=== PATIENT | female | born 1950 | race Caucasian/White ===

== ENCOUNTER → 2017-10-25 | Outpatient (CLI) | payer MEDICARE | LOC: M.RAD 14:04 | DX: M77.32 Calcaneal spur, left foot (principal); M19.072 Primary osteoarthritis, left ankle and foot ==

== ENCOUNTER → 2018-09-18 | Outpatient (CLI) | payer MEDICARE ==
[2018-09-18 12:34] LABS: ABSOLUTE EOSINOPHILS 0.3 thou/uL (0.0-0.7); ABSOLUTE LYMPHOCYTES 1.9 thou/uL (0.8-5.3); ABSOLUTE MONOCYTES 0.6 thou/uL (0.0-1.2); ABSOLUTE NEUTROPHILS 4.1 thou/uL (1.6-8.1); BASOPHILS 0.6 %; EOSINOPHILS 4.3 %; HEMOGLOBIN 9.9 gm/dL (12.0-15.0); LYMPHOCYTES 27.5 %; MCH 21.6 pg (26.0-34.0); MCHC 30.9 g/dL (28.0-37.0); MCV 69.9 fL (80.0-100.0); MONOCYTES 8.4 %; NUCLEATED RBCS 0 /100WBC; PLATELET COUNT* 358 thou/uL (150-400); POLYS 59.2 %; RBC 4.58 mil/uL (4.20-5.00); RDW-CV 18.1 % (10.5-14.5)
[2018-09-18 12:55] LABS: ALKALINE PHOSPHATASE 141 U/L (46-116); ANION GAP 9 mmol/L (7-16); BUN 11 mg/dL (7-18); CALCIUM 8.7 mg/dL (8.5-10.1); CHLORIDE 107 mmol/L (98-107); CHOLESTEROL 226 mg/dL (<200); CO2 24 mmol/L (21-32); CREATININE 0.9 mg/dL (0.6-1.3); GLUCOSE 103 mg/dL (70-99); HDL CHOLESTEROL 55 mg/dL (>40); LDL CHOLESTEROL 144 mg/dL (<100); POTASSIUM 4.1 mmol/L (3.5-5.1); SGOT 9 U/L (15-37); SGPT 13 U/L (30-65); SODIUM 140 mmol/L (136-145); TC:HDL 4.1 Ratio (Not establshd); TOTAL BILIRUBIN 0.1 mg/dL (<0.1-1.0); TOTAL PROTEIN 6.8 g/dL (6.4-8.2); TRIGLYCERIDE 137 mg/dL (<150); VLDL 27 mg/dL (<40)
[2018-09-18 12:56] LABS: SERUM ASSESSMENT Clear
[2018-09-18 13:10] LABS: HYPOCHROMASIA 2+
[2018-09-18 13:11] LABS: ANISOCYTOSIS 1+; MICROCYTES 3+; PLATELET ESTIMATE ADEQUATE
[2018-09-19 16:06] LABS: GLYCOHEMOGLOBIN (HGB A1C) 6.3 % (4.8-5.6)
== END ==
LOC: M.LAB 11:44 → M.RAD 11:44
PROVIDERS: Nurse Practitioner Family
DX: Z12.31 Encounter for screening mammogram for malignant neoplasm of breast (principal); E78.5 Hyperlipidemia, unspecified; R79.89 Other specified abnormal findings of blood chemistry

== ENCOUNTER 2020-08-27 00:37 | Inpatient (IN) | payer MEDICARE ==
[~2020-08-27] VITALS: Ht 162.6 cm; Wt 90.5 kg
--- NOTE | ~2020-08-27 | EEG ---
[address] [address] EEG STUDY REPORT Name: VANESSA CORDERO Sharon Room: [address] IN M.R.#: [id number] Admission: 08/27/20 Attend Phys: Cali Rodriguez MD Discharge: Date of : 52 Report #: [id number] THIS REPORT FOR: cc: Steve Vargas Russell J. DO Khosla, Parveen K. MD ~ DOC #: [id number] Junior Hart MD DATE OF SERVICE: 08/31/2020 This patient is being evaluated for altered mental status. The EEG was done by placing the electrode by standard 10-20 system of electrode placement. Both referential and sequential montages were used for recording. The background activity in this patient's EEG is about 8 Hz and 30 microvolt. The patient went to sleep that is associated with bilateral slowing and vertex sharp waves. Photic stimulation is unremarkable. Throughout the record, no active epileptiform activity was noticed. IMPRESSION: This patient's EEG is disorganized and poorly formed. That is a nonspecific abnormality which can occur with encephalopathy, effect of psychotropic medication, dementia, etc. Clinical correlation is recommended. Junior Hart MD PK/MAX By: 1700 [id number] Hart MD /beto
--- NOTE | ~2020-08-27 | OP ---
[address] [address] OPERATIVE REPORT Name: CORDEROVANESSA Room: [address] IN .R.#: [id number] Admission: 08/27/20 Attend Phys: Cali Rodriguez MD Discharge: Date of : 52 Report #: [id number] THIS REPORT FOR: cc: Steve Vargas Russell J. DO Dugan, David W. DO ~ DOC #: [id number] Bob Potter DO DATE OF SURGERY: 08/29/2020 PREOPERATIVE DIAGNOSIS: Left bimalleolar ankle fracture. POSTOPERATIVE DIAGNOSIS: Left bimalleolar ankle fracture. PROCEDURE PERFORMED: Open reduction internal fixation of left bimalleolar ankle fracture. OPERATIVE SURGEON: Bob Potter DO. TANKROOM TENDER: ___ and Romario Snow DO. IV ANTIBIOTICS: 2 grams IV Ancef. ANESTHESIA: General anesthesia as well as regional block was performed by Anesthesia. ESTIMATED BLOOD LOSS: 50 mL. DRAINS: None. SPECIMENS: None. FINDINGS: Same as postoperative diagnosis. COMPLICATIONS: None. CONDITION: The patient is stable. DISPOSITION: PACU to Med/Surg floor. INDICATIONS FOR PROCEDURE: The patient is a pleasant 69-year-old female who originally presented to [place] ED late Saturday evening for evaluation of altered mental status as well as several falls over the last several months. She was evaluated by Neurology for a possible stroke/TIA but workup has been negative thus far. Throughout her admission, the patient admitted to significant left ankle pain with associated soft tissue swelling and ecchymosis that [facility] [address] [place] [address] OPERATIVE REPORT Name: VANESSA CORDERO Room: [address] IN [facility].#: [id number] Admission: 08/27/20 Attend Phys: Cali Rodriguez MD Discharge: Date of : 52 Report #: [id number] occurred during her most recent fall. She states she was unable to bear weight after her fall. Left ankle radiographs yesterday demonstrated a mildly displaced bimalleolar ankle fracture. We discussed treatment options with the patient and recommended proceeding with left bimalleolar ankle ORIF. The risks, benefits, complications and alternatives of procedure were thoroughly discussed with the patient. The patient accepted the risks and wished to proceed. Written consent was obtained for the procedure. DESCRIPTION OF PROCEDURE: The patient was seen in the preoperative suite. The operative extremity was marked by the operative surgeon. Everyone in the preoperative suite was in agreement on correct side, site, patient and procedure. Popliteal and saphenous blocks were then performed by Anesthesia. After the blocks were completed, the patient was then transported to the operative suite and placed supine on a well-padded operating table. She was given the benefit of general anesthesia as well as 2 grams IV Ancef. A well-padded tourniquet was placed on the left upper thigh that was inflated for a total of 51 minutes at 300 mmHg. A bump was placed under the left hip as well as the bone foam placed under the left lower extremity. The left lower extremity was then prepped and draped in the typical sterile fashion. A time-out was performed that confirmed correct side, site, patient and procedure. Everyone in the operative suite was in agreement. The procedure began by marking out the anatomical landmarks of the distal fibula and marking out the 15 cm longitudinal incision over the posterior border of the distal fibula. The left lower extremity was then exsanguinated with an Esmarch and tourniquet was inflated. The lateral incision was then made with scalpel through skin and subcutaneous tissue. Care was taken to look for the superficial peroneal nerve, that was not visualized throughout the procedure. Metzenbaum scissors were then utilized to bluntly dissect subcutaneous tissue down to the level of periosteum. A scalpel was then utilized to incise the periosteum along bone and then create anterior and posterior flaps. After the creation of the periosteal flaps, the fracture site was visualized and appeared to be comminuted with three fracture fragments including an anterior fragment attached to the AITFL as well as the lateral malleolar fragment. The fracture site was thoroughly irrigated with normal saline. A dental pick, curette and rongeur were utilized to sharply debride the fracture site. A siztn-xe-qusac reduction clamp was then utilized to attempt to reduce the fracture. The anterior piece attached to the AITFL would not fully reduce, and the AITFL was partially released to aid in reduction. Once again, the lfntv-tw-ojpbn reduction clamp was utilized and excellent reduction of her fracture was achieved. Reduction of her fracture was confirmed on both AP and lateral fluoroscopic imaging. The appropriate length Lashonda distal fibular locking plate was then pinned into position with K-wires. The plate was in appropriate position as well as confirmed, maintained reduction of her fracture on both AP and lateral fluoroscopic images. We first turned our attention to drilling of a [address] [address] OPERATIVE REPORT Name: VANESSA CORDERO Room: [address] IN ..#: [id number] Admission: 08/27/20 Attend Phys: Cali Rodriguez MD Discharge: Date of : 52 Report #: [id number] bicortical screw in the distal fibular shaft. The screw was drilled, measured and inserted by hand in the typical fashion. We then turned our attention to the distal most screw hole where a cortical screw was drilled, measured and placed, to suck the plate down to bone. We then turned our attention to filling the locking screw holes distally. The distal locking screws were then drilled, measured, and the appropriate length screws were then inserted by hand. We then turned our attention to drilling the remainder of the proximal shaft screws. The screws were drilled, measured and the appropriate length screws were inserted by hand, 2 bicortical screws and 2 locking screws. We then turned our attention to the most distal hole in the plate, where the cortical screw was removed and the appropriate length locking screw was then inserted by hand. The two K-wires were then removed. AP and lateral fluoroscopic images demonstrated excellent reduction of her fracture as well as appropriate position of the plate. We then turned our attention to the medial malleolus fracture. A 4 cm curved incision centered over the medial malleolus was drawn out with a skin marker. Incision was made with scalpel through skin and subcutaneous tissue. Metzenbaum scissors were then utilized to bluntly dissect down to the level of the medial malleolus, protecting neurovascular structures at all times. A scalpel was utilized to elevate anterior and posterior periosteal flaps. A dental pick and rongeur were utilized to debride the fracture site that was then thoroughly irrigated with normal saline. We then turned our attention to placement of the 2 parallel K wires on power. The two K-wires were confirmed to be in appropriate position and alignment with maintained reduction of her fracture on both AP and lateral imaging. The cortex was overdrilled with the starting reamer. Two 46 mm cannulated screws were then advanced by hand. We completed tightening the screws under fluoroscopy, which demonstrated compression of her fracture as well as maintained reduction. The K-wires were then removed. An external rotation stress test was then performed, which demonstrated no evidence of syndesmotic injury. Final fluoroscopic images, both AP and lateral were then saved. The incisions were then thoroughly irrigated with normal saline. The lateral incision was closed with 0 Vicryl for deep layer followed by 2-0 Vicryl in an interrupted fashion in the subcutaneous layer, followed by a running 3-0 nylon. The medial incision was closed with 2-0 Vicryl in an interrupted fashion followed by 3-0 nylon in an interrupted fashion. The tourniquet was then deflated once again for a total of 51 minutes at 300 mmHg. The skin was then cleaned with a wet-to-dry dressing. Incisions were then dressed with Xeroform, 4 x 4's, ABDs, soft roll, a well-padded posterior slab Orthoglass splint and Harsha wraps. The patient was awoken from general anesthesia and transported to PACU in stable condition. All counts were correct x 2. I attest that Bob Potter DO was present through all critical aspects of this procedure. POSTOPERATIVE PLAN: The patient will be [place] [address] OPERATIVE REPORT Name: VANESSA CORDERO Room: [address] IN ..#: [id number] Admission: 08/27/20 Attend Phys: Cali Rodriguez MD Discharge: Date of : 52 Report #: [id number] extremity. She will maintain her splint clean, dry and intact. She will take aspirin 325 mg daily for DVT prophylaxis. She will work with PT and OT for safe transfers and gait training. She will have analgesics as needed. Medical management per primary. We encouraged her to call with any questions or concerns. DO RADHA West/RAJAT By: 1539 1917Davirommel Potter DO /nt
[2020-08-27 00:47] VITALS: BP 108/49
[2020-08-27 01:41] LABS: ABSOLUTE EOSINOPHILS 0.2 thou/uL (0.0-0.7); ABSOLUTE LYMPHOCYTES 1.6 thou/uL (0.8-5.3); ABSOLUTE MONOCYTES 0.8 thou/uL (0.0-1.2); ABSOLUTE NEUTROPHILS 6.3 thou/uL (1.6-8.1); BASOPHILS 0.2 %; EOSINOPHILS 2.2 %; HEMOGLOBIN 12.1 gm/dL (12.0-15.0); MCH 26.8 pg (26.0-34.0); MCHC 31.9 g/dL (28.0-37.0); MCV 83.8 fL (80.0-100.0); MONOCYTES 8.5 %; MPV 7.6 fl. (7.2-11.1); NUCLEATED RBCS 0 /100WBC; PLATELET COUNT* 254 thou/uL (150-400); POLYS 71.1 %; RBC 4.54 mil/uL (4.20-5.00); RDW-CV 17.7 % (10.5-14.5); WBC 8.9 thou/uL (4.0-11.0)
[2020-08-27 01:46] LABS: CALCIUM 8.6 mg/dL (8.5-10.1); POTASSIUM 3.3 mmol/L (3.5-5.1)
[2020-08-27 01:50] LABS: MAGNESIUM 2.5 mg/dL (1.8-2.4); TOTAL BILIRUBIN 0.2 mg/dL (<0.1-1.0); TOTAL PROTEIN 6.4 g/dL (6.4-8.2)
[2020-08-27 01:52] LABS: URINE BILIRUBIN NEGATIVE (Negative); URINE BLOOD NEGATIVE (Negative); URINE CLARITY CLEAR; URINE COLOR YELLOW; URINE GLUCOSE-RANDOM NEGATIVE (Negative); URINE KETONES NEGATIVE (Negative); URINE LEUKOCYTES-REFLEX NEGATIVE (Negative); URINE NITRITE-REFLEX NEGATIVE (Negative); URINE PROTEIN 1+ (Negative); URINE SPECIFIC GRAVITY 1.025 (1.005-1.030); URINE UROBILINOGEN 0.2 E.U./dl (0.2-1.0)
[2020-08-27 02:07] LABS: BE -16.2 mmol/L (-2 to +3); PCO2 31.4 mmHg (35.0-45.0); PO2 89.4 mmHg (75.0-100.0)
[2020-08-27 02:09] LABS: pH 7.168 (7.340-7.450)
[2020-08-27] MEDS ORDERED: GABAPENTIN (02:44)
[2020-08-27] MEDS ORDERED: ULTRAM 50MG TAB50 MG PO (02:45)
[2020-08-27 05:35] VITALS: BP 159/74
[2020-08-27 06:00] VITALS: BP 154/81
[2020-08-27] MEDS ORDERED: LAMICTAL (07:26)
[2020-08-27 11:41] VITALS: BP 152/57
[2020-08-27 16:10] VITALS: BP 165/48
[2020-08-27 20:00] VITALS: BP 155/69
[2020-08-28 00:41] VITALS: BP 157/70
[2020-08-28 04:33] LABS: ALBUMIN 2.5 g/dL (3.4-5.0); CALCIUM 8.4 mg/dL (8.5-10.1); CREATININE 1.1 mg/dL (0.6-1.3); TOTAL BILIRUBIN 0.3 mg/dL (<0.1-1.0); TOTAL PROTEIN 5.7 g/dL (6.4-8.2)
[2020-08-28 04:40] LABS: CHOLESTEROL 110 mg/dL (<200); HDL CHOLESTEROL 60 mg/dL (>40); LDL CHOLESTEROL 37 mg/dL (<100); POTASSIUM 2.9 mmol/L (3.5-5.1); TC:HDL 1.8 Ratio (Not establshd); TRIGLYCERIDE 68 mg/dL (<150); VLDL 14 mg/dL (<40)
[2020-08-28 04:41] LABS: SERUM ASSESSMENT CLEAR
[2020-08-28 06:37] VITALS: BP 156/66
[2020-08-28 08:00] VITALS: BP 171/85
[2020-08-28 12:00] VITALS: BP 141/68
[2020-08-28 12:16] LABS: CALCIUM 8.4 mg/dL (8.5-10.1); CREATININE 1.1 mg/dL (0.6-1.3); PHOSPHORUS* 3.5 mg/dL (2.5-4.9)
[2020-08-28 13:39] LABS: BE -7.9 mmol/L (-2 to +3); PO2 77.9 mmHg (75.0-100.0); pH 7.331 (7.340-7.450)
[2020-08-28 16:00] VITALS: BP 146/51
[2020-08-28 20:00] VITALS: BP 149/66
[2020-08-29] VITALS (7 sets, daily range): BP systolic 149–172; BP diastolic 61–89
[2020-08-29 02:05] LABS: GLYCOHEMOGLOBIN (HGB A1C) 5.6 % (4.8-5.6)
[2020-08-29 06:56] LABS: HEMATOCRIT 32.9 % (37.0-47.0); HEMOGLOBIN 10.9 gm/dL (12.0-15.0); MCH 27.2 pg (26.0-34.0); MCHC 33.1 g/dL (28.0-37.0); MCV 82.2 fL (80.0-100.0); MPV 7.1 fl. (7.2-11.1); RBC 4.01 mil/uL (4.20-5.00); RDW-CV 17.6 % (10.5-14.5); WBC 7.5 thou/uL (4.0-11.0)
[2020-08-29 07:00] LABS: CALCIUM 8.6 mg/dL (8.5-10.1); CREATININE 0.9 mg/dL (0.6-1.3); POTASSIUM 3.7 mmol/L (3.5-5.1)
--- NOTE | 2020-08-29 13:41 | EKG ---
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[place] : 1950 Requested By: Drea Gastelum Order Number: [id number] MD: Bob Short Measurements Intervals Noble Rate: 76 P: 55 DC: 138 QRS: 3 QRSD: 100 T: 83 QT: 388 QTc: 437 Interpretive Statements Sinus rhythm Abnormal R-wave progression, early transition ST elevation, consider early repolarization No previous ECG available for comparison Electronically Signed On 08-29-2020 13:41:00 CDT by Bob Short [email or web address] <ELECTRONICALLY SIGNED> By: Bob Short MD, [facility] 08/29/20 1341 0042 0042 Bob Short MD, [facility] /EPI
[2020-08-30 05:23] VITALS: BP 170/80
[2020-08-30 08:00] VITALS: BP 146/65
[2020-08-30 09:56] LABS: HEMATOCRIT 32.3 % (37.0-47.0); HEMOGLOBIN 10.4 gm/dL (12.0-15.0); MCH 26.5 pg (26.0-34.0); MCHC 32.3 g/dL (28.0-37.0); MPV 7.5 fl. (7.2-11.1); RBC 3.94 mil/uL (4.20-5.00); RDW-CV 16.9 % (10.5-14.5); WBC 8.7 thou/uL (4.0-11.0)
[2020-08-30 10:07] LABS: CALCIUM 8.3 mg/dL (8.5-10.1); CREATININE 0.9 mg/dL (0.6-1.3); POTASSIUM 3.9 mmol/L (3.5-5.1)
[2020-08-30 11:32] VITALS: BP 146/65
[2020-08-30 20:33] VITALS: BP 142/69
[2020-08-31] VITALS: BP 142/66
[2020-08-31 04:00] VITALS: BP 157/71
[2020-08-31 04:13] LABS: ABSOLUTE EOSINOPHILS 0.4 thou/uL (0.0-0.7); ABSOLUTE LYMPHOCYTES 1.8 thou/uL (0.8-5.3); ABSOLUTE MONOCYTES 0.9 thou/uL (0.0-1.2); ABSOLUTE NEUTROPHILS 4.3 thou/uL (1.6-8.1); BASOPHILS 0.3 %; EOSINOPHILS 5.6 %; HEMATOCRIT 31.8 % (37.0-47.0); HEMOGLOBIN 10.4 gm/dL (12.0-15.0); LYMPHOCYTES 23.7 %; MCH 26.7 pg (26.0-34.0); MCHC 32.7 g/dL (28.0-37.0); MCV 81.7 fL (80.0-100.0); MONOCYTES 11.8 %; MPV 7.1 fl. (7.2-11.1); NUCLEATED RBCS 0 /100WBC; PLATELET COUNT* 243 thou/uL (150-400); POLYS 58.6 %; RDW-CV 17.5 % (10.5-14.5); WBC 7.4 thou/uL (4.0-11.0)
[2020-08-31 04:26] LABS: CALCIUM 8.6 mg/dL (8.5-10.1); CREATININE 0.8 mg/dL (0.6-1.3); POTASSIUM 3.9 mmol/L (3.5-5.1)
[2020-08-31 07:49] VITALS: BP 131/65
[2020-08-31] MEDS ORDERED: COLACE 100 MG100 MG PO (09:58)
[2020-08-31] MEDS ORDERED: NEURONTIN 300M300 M2 PO (09:58)
[2020-08-31] MEDS ORDERED: ASPIRIN325 PO (09:58)
[2020-08-31] MEDS ORDERED: MIRALAX17 GM PO (09:58)
[2020-08-31] MEDS ORDERED: LAMICTAL100 MG PO (09:58)
[2020-08-31] MEDS ORDERED: HYDROCODON-ACE1 EAC7 PO (09:58)
[2020-08-31 12:00] VITALS: BP 134/69
[2020-08-31 16:00] VITALS: BP 144/76
[2020-08-31 20:00] VITALS: BP 157/71
[2020-09-01] VITALS: BP 146/74
[2020-09-01 04:00] VITALS: BP 164/74
[2020-09-01 08:27] VITALS: BP 151/71
[2020-09-01 12:32] VITALS: BP 128/72
[2020-09-01 17:33] VITALS: BP 155/43
[2020-09-02 13:08] LABS: ALPHA TOCOPHEROL 7.4 mg/L (9.0-29.0); GAMMA TOCOPHEROL 0.7 mg/L (0.5-4.9)
== END 2020-09-01 18:15 | DRG 492 ==
LOC: M.ERS 00:37 → M.2W 03:22 → M.TBA-ER 03:22 → M.2W 04:37
PROVIDERS: Internal Medicine; Internal Medicine Nephrology; Personal Emergency Response Attendant; ADMIT Internal Medicine; ATTEND Internal Medicine
PROC: 0QSK04Z Reposition Left Fibula with Internal Fixation Device, Open Approach (ICD-10-PCS; principal; 2020-08-29)
DX: S82.842A Displaced bimalleolar fracture of left lower leg, initial encounter for closed fracture (principal); N17.0 Acute kidney failure with tubular necrosis; G93.41 Metabolic encephalopathy; E87.2 Acidosis; R47.01 Aphasia; M19.90 Unspecified osteoarthritis, unspecified site; N18.9 Chronic kidney disease, unspecified; E05.90 Thyrotoxicosis, unspecified without thyrotoxic crisis or storm; E87.6 Hypokalemia; R27.0 Ataxia, unspecified; Z20.822 Contact with and (suspected) exposure to COVID-19; W18.39XA Other fall on same level, initial encounter; Y93.89 Activity, other specified; Y92.89 Other specified places as the place of occurrence of the external cause; Y99.8 Other external cause status

== ENCOUNTER 2020-09-01 14:37 | Inpatient (IN) | payer MEDICARE ==
[~2020-09-01] VITALS: Ht 162.6 cm; Wt 86.5 kg
[~2020-09-01 14:37] MED LIST: ASPIRIN325 PO; BACTRIM DS TAB1 EACH PO; COLACE 100 MG100 MG PO; DOK PLUS TABLE1 EACH PO; GABAPENTIN; HYDROCODON-ACE1 EAC7 PO; IBUPROFEN 800800 M1 PO; KLOR-CON M2020 MEQ PO; LAMICTAL; LAMICTAL (ORAN1 EACH PO; LAMICTAL100 MG PO; MIRALAX17 GM PO; NEURONTIN 300300 M1 PO; NEURONTIN 300M300 M2 PO; THERA M PLUS T1 EAC2 PO; TRAMADOL 50 MG50 MG PO; ULTRAM 50MG TAB50 MG PO; VITAMIN B-12500 MCG PO
[2020-09-02 05:09] LABS: HEMATOCRIT 32.9 % (37.0-47.0); HEMOGLOBIN 10.6 gm/dL (12.0-15.0); MCH 26.6 pg (26.0-34.0); MCHC 32.3 g/dL (28.0-37.0); MCV 82.5 fL (80.0-100.0); MPV 6.9 fl. (7.2-11.1); RBC 3.99 mil/uL (4.20-5.00); RDW-CV 16.5 % (10.5-14.5); WBC 6.7 thou/uL (4.0-11.0)
[2020-09-02 05:14] LABS: CALCIUM 8.9 mg/dL (8.5-10.1); CREATININE 0.7 mg/dL (0.6-1.3)
[2020-09-02 07:30] VITALS: BP 154/74
[2020-09-02 19:54] VITALS: BP 150/66
[2020-09-03 08:06] VITALS: BP 129/66
[2020-09-03 19:00] VITALS: BP 142/74
[2020-09-04 07:46] VITALS: BP 156/77
[2020-09-04 20:16] VITALS: BP 139/68
[2020-09-05 07:47] VITALS: BP 152/70
[2020-09-05 19:00] VITALS: BP 138/66
[2020-09-06 08:01] VITALS: BP 120/72
[2020-09-06 20:03] VITALS: BP 132/54
[2020-09-07 05:20] LABS: HEMATOCRIT 32.5 % (37.0-47.0); HEMOGLOBIN 10.6 gm/dL (12.0-15.0); MCH 27.2 pg (26.0-34.0); MCHC 32.6 g/dL (28.0-37.0); MCV 83.5 fL (80.0-100.0); MPV 7.2 fl. (7.2-11.1); RBC 3.89 mil/uL (4.20-5.00); RDW-CV 16.5 % (10.5-14.5)
[2020-09-07 05:28] LABS: CALCIUM 8.7 mg/dL (8.5-10.1); CREATININE 0.8 mg/dL (0.6-1.3); POTASSIUM 4.3 mmol/L (3.5-5.1)
[2020-09-07 08:07] VITALS: BP 130/75
[2020-09-07 19:00] VITALS: BP 148/68
[2020-09-08 08:06] VITALS: BP 161/71
[2020-09-08 20:04] VITALS: BP 140/69
[2020-09-09 08:19] VITALS: BP 148/72
[2020-09-09 20:00] VITALS: BP 141/73
[2020-09-10 08:04] VITALS: BP 145/68
[2020-09-10 20:00] VITALS: BP 131/77
[2020-09-11 08:11] VITALS: BP 145/64
[2020-09-11 13:01] LABS: URINE BILIRUBIN NEGATIVE (Negative); URINE BLOOD TRACE (Negative); URINE CLARITY CLEAR; URINE COLOR YELLOW; URINE GLUCOSE-RANDOM NEGATIVE (Negative); URINE KETONES NEGATIVE (Negative); URINE NITRITE-REFLEX NEGATIVE (Negative); URINE PROTEIN NEGATIVE (Negative); URINE SPECIFIC GRAVITY <= 1.005 (1.005-1.030); URINE UROBILINOGEN 0.2 E.U./dl (0.2-1.0)
[2020-09-11 13:09] LABS: URINE LEUKOCYTES-REFLEX 3+ (Negative)
[2020-09-11 13:16] LABS: CASTS None Seen /LPF (None Seen); CRYSTALS None Seen /LPF (None Seen); MUCUS 0-3 Light strn/LPF (None Seen); SQUAMOUS 0-3 Few /LPF (0-3); URINE RBC 0-2 Rare /HPF (0-2)
[2020-09-11 20:11] VITALS: BP 153/82
[2020-09-12 04:37] LABS: CALCIUM 8.8 mg/dL (8.5-10.1); CREATININE 0.9 mg/dL (0.6-1.3); POTASSIUM 4.6 mmol/L (3.5-5.1)
[2020-09-12 08:30] VITALS: BP 138/79
[2020-09-12 20:00] VITALS: BP 146/71
[2020-09-13 09:00] VITALS: BP 121/68
[2020-09-13 19:00] VITALS: BP 139/68
[2020-09-14 05:05] LABS: CALCIUM 8.8 mg/dL (8.5-10.1); CREATININE 0.8 mg/dL (0.6-1.3); POTASSIUM 4.1 mmol/L (3.5-5.1)
[2020-09-14 05:07] LABS: HEMATOCRIT 34.5 % (37.0-47.0); HEMOGLOBIN 11.3 gm/dL (12.0-15.0); MCHC 32.6 g/dL (28.0-37.0); MCV 82.8 fL (80.0-100.0); MPV 7.7 fl. (7.2-11.1); RBC 4.17 mil/uL (4.20-5.00); RDW-CV 15.8 % (10.5-14.5); WBC 7.2 thou/uL (4.0-11.0)
[2020-09-14 08:16] VITALS: BP 136/76
[2020-09-14 19:55] VITALS: BP 149/79
[2020-09-15 08:00] VITALS: BP 141/76
[2020-09-15 20:22] VITALS: BP 160/77
[2020-09-16 07:54] VITALS: BP 133/64
[2020-09-16 20:30] VITALS: BP 149/72
[2020-09-17 07:18] VITALS: BP 135/78
[2020-09-17 19:00] VITALS: BP 148/71
[2020-09-18 07:52] VITALS: BP 122/69
[2020-09-18 20:11] VITALS: BP 146/67
[2020-09-18 21:57] LABS: URINE BILIRUBIN NEGATIVE (Negative); URINE BLOOD NEGATIVE (Negative); URINE CLARITY CLEAR; URINE COLOR YELLOW; URINE GLUCOSE-RANDOM NEGATIVE (Negative); URINE KETONES NEGATIVE (Negative); URINE LEUKOCYTES-REFLEX NEGATIVE (Negative); URINE NITRITE-REFLEX NEGATIVE (Negative); URINE PROTEIN NEGATIVE (Negative); URINE UROBILINOGEN 0.2 E.U./dl (0.2-1.0)
[2020-09-19 09:00] VITALS: BP 123/77
[2020-09-19 19:00] VITALS: BP 127/74
[2020-09-20 08:22] VITALS: BP 143/74
[2020-09-20 10:54] VITALS: BP 143/74
[2020-09-20 12:46] VITALS: BP 143/74
== END 2020-09-20 15:00 | disposition home health service (06) | DRG 70 ==
LOC: M.REH 14:37
PROVIDERS: Internal Medicine; ADMIT Physical Medicine & Rehabilitation; ATTEND Physical Medicine & Rehabilitation
DX: G93.41 Metabolic encephalopathy (principal); N17.0 Acute kidney failure with tubular necrosis; N39.0 Urinary tract infection, site not specified; R47.01 Aphasia; N18.9 Chronic kidney disease, unspecified; Z87.891 Personal history of nicotine dependence; M19.90 Unspecified osteoarthritis, unspecified site; S82.845A Nondisplaced bimalleolar fracture of left lower leg, initial encounter for closed fracture; R47.1 Dysarthria and anarthria; E87.6 Hypokalemia; F10.11 Alcohol abuse, in remission; R53.81 Other malaise; S82.52XA Displaced fracture of medial malleolus of left tibia, initial encounter for closed fracture; S82.432A Displaced oblique fracture of shaft of left fibula, initial encounter for closed fracture; F39 Unspecified mood [affective] disorder; S82.832A Other fracture of upper and lower end of left fibula, initial encounter for closed fracture; W18.39XA Other fall on same level, initial encounter; Y93.89 Activity, other specified; Y92.89 Other specified places as the place of occurrence of the external cause; Z87.440 Personal history of urinary (tract) infections; Y99.8 Other external cause status

== ENCOUNTER → 2020-10-14 | Outpatient (CLI) | payer MEDICARE | LOC: M.RAD 10:44 | PROVIDERS: ATTEND Nurse Practitioner Family | DX: M17.11 Unilateral primary osteoarthritis, right knee (principal); M25.761 Osteophyte, right knee ==

== ENCOUNTER 2020-12-27 07:10 | Emergency (ER) | payer MEDICARE ==
[~2020-12-27] VITALS: Ht 162.6 cm; Wt 78.0 kg
[2020-12-27] MEDS ORDERED: ASA81BEC PO (07:33)
[2020-12-27 07:41] LABS: ABSOLUTE EOSINOPHILS 0.1 thou/uL (0.0-0.7); ABSOLUTE LYMPHOCYTES 1.6 thou/uL (0.8-5.3); ABSOLUTE MONOCYTES 0.5 thou/uL (0.0-1.2); ABSOLUTE NEUTROPHILS 5.9 thou/uL (1.6-8.1); BASOPHILS 0.3 %; EOSINOPHILS 1.8 %; HEMATOCRIT 40.3 % (37.0-47.0); HEMOGLOBIN 12.4 gm/dL (12.0-15.0); MCH 24.6 pg (26.0-34.0); MCHC 30.6 g/dL (28.0-37.0); MCV 80.4 fL (80.0-100.0); MONOCYTES 6.2 %; MPV 7.7 fl. (7.2-11.1); NUCLEATED RBCS 0 /100WBC; PLATELET COUNT* 287 thou/uL (150-400); POLYS 71.7 %; RBC 5.02 mil/uL (4.20-5.00); RDW-CV 18.1 % (10.5-14.5); WBC 8.2 thou/uL (4.0-11.0)
[2020-12-27 07:55] LABS: CALCIUM 8.7 mg/dL (8.5-10.1); CREATININE 1.6 mg/dL (0.6-1.3); POTASSIUM 3.6 mmol/L (3.5-5.1)
[2020-12-27 08:02] LABS: ALBUMIN 3.3 g/dL (3.4-5.0); TOTAL BILIRUBIN 0.2 mg/dL (<0.1-1.0); TOTAL PROTEIN 6.6 g/dL (6.4-8.2)
[2020-12-27 08:55] LABS: URINE BILIRUBIN NEGATIVE (Negative); URINE BLOOD TRACE (Negative); URINE CLARITY CLEAR; URINE COLOR YELLOW; URINE GLUCOSE-RANDOM NEGATIVE (Negative); URINE KETONES NEGATIVE (Negative); URINE LEUKOCYTES 3+ (Negative); URINE NITRITE POSITIVE (Negative); URINE PROTEIN 2+ (Negative); URINE SPECIFIC GRAVITY 1.025 (1.005-1.030); URINE UROBILINOGEN 0.2 E.U./dl (0.2-1.0)
[2020-12-27 09:57] LABS: BACTERIA >30 Many /HPF (None Seen); CASTS None Seen /LPF (None Seen); CRYSTALS None Seen /LPF (None Seen); MUCUS None Seen strn/LPF (None Seen); RENAL EPITHELIAL CELLS >10 Many /LPF (None Seen); SQUAMOUS 0-3 Few /LPF (0-3); URINE RBC 3-10 Few /HPF (0-2)
--- NOTE | 2020-12-27 10:45 | EKG ---
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: : 1950 Requested By: Jonny Samano Order Number: [id number] MD: Winston Caballero Measurements Intervals [place] Rate: 74 P: 56 [place]: 135 QRS: 2 QRSD: 102 T: 99 QT: 395 QTc: 439 Interpretive Statements Sinus rhythm Probable left atrial enlargement Borderline T wave abnormalities Baseline wander in lead(s) II,III,aVR,aVL,aVF,V1,V2,V3,V4,V5,V6 Compared to ECG 08/27/2020 00:42:08 T-wave abnormality now present ST (T wave) deviation no longer present Electronically Signed On 12-27-2020 10:45:46 CDT by Winston Caballero [email or web address] <ELECTRONICALLY SIGNED> By: Winston Caballero MD, [facility] 12/27/20 1045 0739 Winston Caballero MD, [facility] /EPI
[2020-12-27 10:48] LABS: CALCIUM 8.6 mg/dL (8.5-10.1); CREATININE 1.3 mg/dL (0.6-1.3); POTASSIUM 3.9 mmol/L (3.5-5.1)
[2020-12-27] MEDS ORDERED: MACROBID 100 M100 M1 PO (12:17)
[2020-12-27] MEDS ORDERED: NORCO5 PO (12:17)
[2020-12-27 12:54] VITALS: BP 154/73
== END 2020-12-27 12:57 | disposition home or self-care (01) ==
LOC: M.ERS 07:10
PROVIDERS: Emergency Medicine
DX: S82.202A Unspecified fracture of shaft of left tibia, initial encounter for closed fracture (principal); Z20.822 Contact with and (suspected) exposure to COVID-19; N39.0 Urinary tract infection, site not specified; M19.90 Unspecified osteoarthritis, unspecified site; Z79.82 Long term (current) use of aspirin; Z79.899 Other long term (current) drug therapy; W19.XXXA Unspecified fall, initial encounter; Y93.89 Activity, other specified; Y92.89 Other specified places as the place of occurrence of the external cause; Y99.8 Other external cause status

== ENCOUNTER 2020-12-28 10:23 | Inpatient (IN) | payer MEDICARE ==
[~2020-12-28] VITALS: Ht 162.6 cm; Wt 78.5 kg
[~2020-12-28 10:23] MED LIST changes: +ASA81BEC PO; +MACROBID 100 M100 M1 PO; +NORCO5 PO
[2020-12-28 10:28] VITALS: BP 136/61
[2020-12-28 10:57] LABS: BASOPHILS 0.4 %; HEMOGLOBIN 12.2 gm/dL (12.0-15.0); MPV 7.7 fl. (7.2-11.1)
[2020-12-28 11:02] LABS: ABSOLUTE EOSINOPHILS 0.1 thou/uL (0.0-0.7); ABSOLUTE LYMPHOCYTES 1.9 thou/uL (0.8-5.3); ABSOLUTE MONOCYTES 0.7 thou/uL (0.0-1.2); ABSOLUTE NEUTROPHILS 6.6 thou/uL (1.6-8.1); EOSINOPHILS 1.2 %; HEMATOCRIT 40.8 % (37.0-47.0); LYMPHOCYTES 20.4 %; MCH 25.1 pg (26.0-34.0); MCV 83.6 fL (80.0-100.0); MONOCYTES 7.8 %; NUCLEATED RBCS 0 /100WBC; PLATELET COUNT* 228 thou/uL (150-400); POLYS 70.2 %; RBC 4.88 mil/uL (4.20-5.00); RDW-CV 18.8 % (10.5-14.5); WBC 9.3 thou/uL (4.0-11.0)
--- NOTE | 2020-12-28 11:05 | EKG ---
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: : 1950 Requested By: Jose Alfredo Murillo Order Number: [id number] MD: Bob Short Measurements Intervals [place] Rate: 79 P: 44 [place]: 140 QRS: 9 QRSD: 101 T: 101 QT: 381 QTc: 437 Interpretive Statements Sinus rhythm Abnormal R-wave progression, early transition LVH with secondary repolarization abnormality Compared to ECG 12/27/2020 07:39:31 Left ventricular hypertrophy now present Early repolarization now present Electronically Signed On 12-28-2020 11:04:57 CDT by Bob Short [email or web address] <ELECTRONICALLY SIGNED> By: Bob Short MD, [facility] 12/28/20 1104 1043 1043 Bob Short MD, [facility] /EPI
[2020-12-28 11:07] LABS: CALCIUM 8.8 mg/dL (8.5-10.1); CREATININE 1.2 mg/dL (0.6-1.3); POTASSIUM 3.8 mmol/L (3.5-5.1)
[2020-12-28 11:12] LABS: ALBUMIN 3.3 g/dL (3.4-5.0); TOTAL BILIRUBIN 0.2 mg/dL (<0.1-1.0); TOTAL PROTEIN 6.6 g/dL (6.4-8.2)
[2020-12-28 11:17] LABS: URINE BILIRUBIN NEGATIVE (Negative); URINE BLOOD 1+ (Negative); URINE CLARITY CLEAR; URINE COLOR YELLOW; URINE GLUCOSE-RANDOM NEGATIVE (Negative); URINE KETONES TRACE (Negative); URINE LEUKOCYTES-REFLEX TRACE (Negative); URINE NITRITE-REFLEX NEGATIVE (Negative); URINE PROTEIN 2+ (Negative); URINE SPECIFIC GRAVITY 1.025 (1.005-1.030); URINE UROBILINOGEN 0.2 E.U./dl (0.2-1.0)
[2020-12-28 11:28] LABS: BACTERIA-REFLEX None Seen /HPF (None Seen); CASTS None Seen /LPF (None Seen); CRYSTALS None Seen /LPF (None Seen); MUCUS 4-6 Moderate strn/LPF (None Seen); RENAL EPITHELIAL CELLS 0-3 Few /LPF (None Seen); SQUAMOUS 0-3 Few /LPF (0-3); URINE RBC 3-10 Few /HPF (0-2); URINE WBC-REFLEX 0-5 Rare /HPF (0-5)
[2020-12-28 16:29] VITALS: BP 194/78
[2020-12-28 17:16] LABS: AMP/METHAMP Negative (Negative); BARBITURATES Negative (Negative); BENZODIAZEPINES Negative (Negative); COCAINE Negative (Negative); METHADONE Negative (Negative); OPIATES POSITIVE (Negative); PCP Negative (Negative); THC Negative (Negative)
[2020-12-28 22:00] VITALS: BP 189/73
[2020-12-28 23:03] VITALS: BP 189/73
[2020-12-28 23:35] VITALS: BP 185/77
[2020-12-29 04:24] LABS: HEMATOCRIT 34.2 % (37.0-47.0); HEMOGLOBIN 11.1 gm/dL (12.0-15.0); MCH 25.6 pg (26.0-34.0); MCHC 32.4 g/dL (28.0-37.0); MCV 79.1 fL (80.0-100.0); MPV 7.7 fl. (7.2-11.1); RBC 4.33 mil/uL (4.20-5.00); RDW-CV 18.4 % (10.5-14.5); WBC 7.6 thou/uL (4.0-11.0)
[2020-12-29 04:39] VITALS: BP 170/71
[2020-12-29 04:42] LABS: ALBUMIN 2.7 g/dL (3.4-5.0); CALCIUM 8.8 mg/dL (8.5-10.1); CREATININE 0.9 mg/dL (0.6-1.3); MAGNESIUM 2.1 mg/dL (1.8-2.4); POTASSIUM 3.2 mmol/L (3.5-5.1); TOTAL BILIRUBIN 0.2 mg/dL (<0.1-1.0); TOTAL PROTEIN 5.7 g/dL (6.4-8.2)
--- NOTE | 2020-12-29 07:44 | NUR ---
Admit at 2300 last evening. She is alert and oriented but forgetful. Her LLE is bulky acewrap with splint, it is up on a pillow. She is sinus rhthym on the monitor. She did have hydrocodone x 2 for LLE pain. She does have a purewick and she has had a lot of urine output. She has slept well.
[2020-12-29 08:00] VITALS: BP 172/68
[2020-12-29 12:32] VITALS: BP 174/84
--- NOTE | 2020-12-29 15:09 | NUR ---
ASSUME CARE OF PATIENT. PATIENT IS RESTING WITH LEFT LOWER EXTREMITY ELEVATED ON PILLOW. CIRC AND SENSATION ADEQ. IV SOLUTION INFUSING PER RFA.
[2020-12-29 16:16] VITALS: BP 190/84
--- NOTE | 2020-12-29 18:12 | NUR ---
patient doing well today. medicated x2. here to visit. patient was pleasant. large splint to left lower leg. circ and sens adeq. nicolepayal will have surgery on Saturday.
[2020-12-29 19:52] VITALS: BP 187/86
[2020-12-29 23:52] VITALS: BP 177/77
--- NOTE | 2020-12-30 04:09 | NUR ---
PATIENT HAS REMAINED ALERT AND ORIENTED X 4 WITH SOME FORGETFULNESS. BEDREST WITH NWB LLE. DRESSING/SPLINT LLE HAS REMAINED CLEAN AND DRY/ELEVATED ON PILLOW. MEDICATED FOR PAIN Q4H WITH ACCEPTABLE RESPONSE PER PATIENT. VITAL SIGNS STABLE WITH HYPERENSION. ALL MEDS PER ORDER. PUREWICK IN PLACE FOR INCONT. FALL PRECAUTIONS IN PLACE. CONTINUE TO MONITOR.
[2020-12-30 04:10] VITALS: BP 156/83
[2020-12-30 08:00] VITALS: BP 173/91
[2020-12-30 12:11] VITALS: BP 184/84
[2020-12-30] MEDS ORDERED: ELIQUIS2.5 MG PO (12:12)
[2020-12-30 12:28] LABS: CREATININE 0.8 mg/dL (0.6-1.3); POTASSIUM 3.3 mmol/L (3.5-5.1)
--- NOTE | 2020-12-30 14:06 | NUR ---
CM ASSESSMENT: PT A&O, AND NORMALLY INDEPENDENT WITH ADL'S. PT RESIDES AT HOME WITH SPOUSE AND HE IS AT THE BEDSIDE AND INFORMS THAT THE PT HAD MULTIPLE FALLS RECENTLY. PT'S SPOUSE ALSO INFORMS THAT HE HURT HIS BACK, KNEE, AND HIP TRYING TO ASSIST THE PT AFTER HER FALL. PT'S SOUSE IS PLANNED TO HAVE KNEE AND HIP SX SOON AND THIS IS A BARRIER TO D/C THE PT WILL NOT HAVE ANY SUPPORT AT D/C. PT'S SPOUSE IS HER ONLY SOURCE OF SUPPORT. PRIOR TO ADMIT PT HAD BEEN USING THE WALKER AND CANE FOR MOBILITY, AND HAD BEEN GOING TO OUTPATIENT THERAPY WHICH INCLUDED AQUATIC THERAPY 2X'S PER WEEK. PT HAS ARU HX. PT HAS 0 SNF HX. PT HAS HX O HH WITH [facility]. PT AND SPOUSE HOPEFUL FOR SNF AT D/C. HOWEVER AT THIS TIEM SNF IS THE BEST OPTION FOR THIS PT HER SPOUSE IS UNABLE TO SUPPORT HER AT D/C AND SHE MAY NEED A EXTENDED AMOUNT OF TIME TO RECOVER. CM TO F/U WITH THE PT AND HER SPOUSE TO DISCUSS SNF OPTIONS. CM WILL REMAIN AVAILABLE TO ASSIST AND FOLLOW NEEDED.
[2020-12-30 19:57] VITALS: BP 130/79
[2020-12-31] VITALS: BP 152/78
[2020-12-31 04:00] VITALS: BP 153/78
--- NOTE | 2020-12-31 04:49 | NUR ---
PT ALERT AND ORIENTED, BED REST, USES CALL LIGHT APPROPRIATELY. NORCO PRN FOR PAIN, REQUESTS WHEN NEEDED. ROOM AIR, SLEPT ALL NIGHT. SHE RECEIVED ALL MEDS SCHEDULED. NO EVENTS OVERNIGHT.
[2020-12-31 07:45] VITALS: BP 150/89
[2020-12-31 09:21] VITALS: BP 150/89
[2020-12-31 12:22] VITALS: BP 151/86
== END 2020-12-31 13:18 | DRG 562 ==
LOC: M.ERS 10:23 → M.TBA-ER 12:29 → M.2W 12:29
PROVIDERS: Emergency Medicine Emergency Medical Services; Internal Medicine; ADMIT Internal Medicine; ATTEND Internal Medicine
DX: S82.302A Unspecified fracture of lower end of left tibia, initial encounter for closed fracture (principal); N17.0 Acute kidney failure with tubular necrosis; G92 Toxic encephalopathy; R65.11 Systemic inflammatory response syndrome (SIRS) of non-infectious origin with acute organ dysfunction; N39.0 Urinary tract infection, site not specified; F11.20 Opioid dependence, uncomplicated; E87.2 Acidosis; B96.89 Other specified bacterial agents as the cause of diseases classified elsewhere; E86.0 Dehydration; Z20.822 Contact with and (suspected) exposure to COVID-19; M19.90 Unspecified osteoarthritis, unspecified site; W18.39XA Other fall on same level, initial encounter; Y93.89 Activity, other specified; Y92.89 Other specified places as the place of occurrence of the external cause; Y99.8 Other external cause status

== ENCOUNTER → 2021-04-26 | Outpatient (CLI) | payer MEDICARE ==
[~2021-04-26] MED LIST changes: +ELIQUIS2.5 MG PO
== END ==
LOC: M.MRI 10:23
PROVIDERS: ATTEND Nurse Practitioner Family
DX: S83.241A Other tear of medial meniscus, current injury, right knee, initial encounter (principal); M17.11 Unilateral primary osteoarthritis, right knee; M25.861 Other specified joint disorders, right knee; X58.XXXA Exposure to other specified factors, initial encounter; Y93.89 Activity, other specified; Y92.89 Other specified places as the place of occurrence of the external cause; Y99.8 Other external cause status